=== PATIENT | male | born 1995 | race Caucasian/White ===

== ENCOUNTER 2018-08-10 12:36 | Outpatient (CLI) | payer OTHER ==
--- NOTE | 2018-08-10 13:59 | RAD ---
RIGHT KNEE THREE VIEWS: History: Right knee pain. FINDINGS: No fracture or dislocation, bony destruction or osteophyte formation is seen. Joint spaces are well p reserved. IMPRESSION: No significant abnormalities are seen. POS: OFF
== END 2018-08-10 12:37 | disposition home or self-care (01) ==
LOC: RAD 12:36
PROVIDERS: ATTEND Orthopaedic Surgery
DX: M19.90 Unspecified osteoarthritis, unspecified site (principal)

== ENCOUNTER 2024-09-06 21:25 | Emergency (ER) | payer OTHER, SELFPAY ==
[2024-09-06] MEDS ORDERED: Acetaminophen 500 MG TAB ONE (21:28)
[2024-09-06] MEDS ORDERED: Ibuprofen 200 MG TAB ONE (21:29)
== END 2024-09-07 00:56 | disposition home or self-care (01) ==
LOC: ERS 21:25
DX: B34.9 Viral infection, unspecified (principal); Z79.899 Other long term (current) drug therapy
CPT/HCPCS: 71045; 87081; 87428; 87430